=== PATIENT | male | born 1990 | race African-American/Black ===

== ENCOUNTER 2017-02-01 18:02 | Emergency (ER) | payer SELFPAY ==
[~2017-02-01] VITALS: Ht 185.4 cm; Wt 81.6 kg
[2017-02-01 18:30] VITALS: BP 126/81
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
[2017-02-01] MEDS ORDERED: CYCL10TA2 PO (19:33)
[2017-02-01] MEDS ORDERED: NAPROXEN 500 MG TABLET PO ONE (19:45)
== END 2017-02-01 19:38 | disposition home or self-care (01) ==
LOC: ER 18:02
DX: S06.0X0A Concussion without loss of consciousness, initial encounter (principal); S39.012A Strain of muscle, fascia and tendon of lower back, initial encounter; M79.641 Pain in right hand; V43.62XA Car passenger injured in collision with other type car in traffic accident, initial encounter; Y93.89 Activity, other specified; Y92.410 Unspecified street and highway as the place of occurrence of the external cause; Y99.8 Other external cause status
CPT/HCPCS: 70450; 70486; 99284-25